=== PATIENT | male | born 1980 | race Caucasian/White ===

== ENCOUNTER 2024-04-12 06:54 | Outpatient (CLI) | payer OTHER, SELFPAY ==
--- NOTE | 2024-04-12 07:06 | MR_ITS ---
WS: [id number] MRI HEAD WITH CONTRAST TECHNIQUE: Sagittal T1, T2 axial, T2 axial FLAIR, axial susceptibility weighted imaging, axial diffus ion weighted images, and coronal T2 images were obtained. Pre and post-T1 axial and post T1 coronal i mages. ADC and FSPGR images. CLINICAL INFORMATION: RIVERS'S COMPARISON: None. FINDINGS: No evidence of restricted diffusion to suggest acute ischemia. Ventricular system and basal cisterns are patent. No suspicious intracranial signal abnormalities. Normal viera-white differentiat ion. Normal posterior fossa. Normal vascular flow voids at the skull base. No extra-axial fluid colle ctions. No evidence of mass or mass effect. Paranasal sinuses and mastoid air cells are well aerated. No hemosiderin on susceptibility-weighted i mages. Normal optic chiasm and pituitary infundibulum. Temporal lobes and hippocampal formations are normal in appearance. Incidental venous angioma RIGHT inferior frontal lobe. Normal dural venous sinuses. MR/MR head wo/w con [id number] IMPRESSION: 1. No evidence of restricted diffusion to suggest acute ischemia. 2. No suspicious intracranial signal abnormalities. 3. Incidental venous angioma RIGHT inferior frontal lobe. 4. No hemosiderin on the susceptibly weighted images. 5. No other suspicious findings.
== END 2024-04-12 06:55 | disposition home or self-care (01) ==
LOC: RAD 06:54
PROVIDERS: Visit Provider Family Medicine
DX: Z87.820 Personal history of traumatic brain injury (principal); R41.3 Other amnesia; D18.02 Hemangioma of intracranial structures
CPT/HCPCS: 70553; A9577

== ENCOUNTER 2025-06-03 23:44 | Emergency (ER) | payer OTHER, SELFPAY ==
--- NOTE | 2025-06-03 23:46 | ECG_ITS ---
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
--- OUTSIDE RECORDS SUMMARY | 2025-06-03 23:51 | XMS_ITS | Clinical Summary ---
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 Name Role Phone Unavailable Primary Care Provider Unavailabl e Social History Tobacco Use Types Packs/Day Years Used Date Smoking Tobacco: Never Assessed Sex and Gender Information Value Date Recorded Sex Assigned at Not on file Legal Sex Male 7:58 AM CDT Gender Identity Not on file Sexual Orientation Not on file Plan of Treatment Health Maintenance Due Date Last Done Comments DIABETES ANNUAL FOOT EXAM 1996 DIABETES MICROALBUMIN ANNUAL SCREEN 1996 LDL CHOLESTEROL ANNUAL 1996 HEPATITIS B VACCINES (1 of 3 - 19+ 3-dose series) 1997 03/06/2009, 04/18/2008 DIABETES ANNUAL RETINAL EXAM 03/16/2008 03/16/2007 DTAP/TDAP/TD VACCINES (1 - Tdap) 11/27/2010 11/26/2010 COLORECTAL SCREENING 11/04/2023 Colorectal Cancer Screening 11/04/2023 FIT-DNA Q 3 years 11/04/2023 FIT/FOBT Q 1 year 11/04/2023 Flex Sig/CT Colonography Q 5 years 11/04/2023 DIABETES HBA1C Q 6 MONTHS 07/28/2024 01/27/2024 INFLUENZA VACCINE (#1) 2025 6, 05/11/2012, 05/21/2011, Additional history exists HPV VACCINES Aged Out No longer eligi ble based on patient's age to complete this topic Insurance [place] [employer]
--- NOTE | 2025-06-04 00:04 | XRR_ITS ---
PROCEDURE INFORMATION: Exam: XR Chest Exam date and time: 06/04/2025 12:34 AM Age: 44 years old Clinical indication: Chest wall pain; Additional info: Cp TECHNIQUE: Imaging protocol: Radiologic exam of the chest. Views: 1 view. COMPARISON: No relevant prior studies available. FINDINGS: Lungs: Unremarkable. No consolidation. Pleural spaces: Unremarkable. No pleural effusion. No pneumothorax. Heart/Mediastinum: Unremarkable. No cardiomegaly. Bones/joints: Unremarkable. XR/XR chest 1V portable [id number] IMPRESSION: No acute findings.
[2025-06-04 00:10] VITALS: BP 137/90; PULSE 80; RESP 18; TEMP 36.6; O2SAT 97; BMI 25.7
[2025-06-04 00:46] LABS: Hematocrit 47.0 % (37-53); Hemoglobin 16.20 g/dL (11.27-16.99); Mean Corpuscular HGB Conc 34.5 g/dL (30-55); Mean Corpuscular Hemoglobin 30.4 pg (27-33); Mean Corpuscular Volume 88.2 fl (82-101); Nucleated Red Blood Cells % 0 %; Platelet Count 236 10^3/cmm (157-399); Red Blood Count 5.33 10^6/uL (3.85-5.65); White Blood Count 11.38 10^3/uL (3.29-11.43)
[2025-06-04 01:04] LABS: Troponin(5th) Baseline < 6 ng/L (0-15)
[2025-06-04 01:06] LABS: Alanine Aminotransferase 15 U/L (0-41); Albumin Level 4.6 g/dL (3.5-5.2); Alkaline Phosphatase 67 U/L (40-130); Anion Gap 18.2 (5-19); Aspartate Amino Transferase 17 U/L (0-40); Blood Urea Nitrogen 13 mg/dL (6-20); Calcium 9.4 mg/dL (8.5-10.5); Carbon Dioxide 24 mmol/L (22-29); Chloride 103 mmol/L (98-107); Creatinine Clr Calc Pharmacy 159.6642; Globulin 2.0 g/dL (1.3-4.6); Glucose 87 mg/dL (65-115); Osmolality Calculated 291 mOsm/kg (285-295); Potassium 4.2 mmol/L (3.5-5.1); Sodium 141 mmol/L (136-145); Total Protein 6.6 g/dL (6.6-8.7)
[2025-06-04] MEDS: lidocaine 2% viscous 15 ML, aluminum-mag hydrox-simethicon 30 ML, sucralfate oral liq 1 GM PO (01:43)
[2025-06-04 01:45] VITALS: BP 136/93; PULSE 81; RESP 16; O2SAT 99
[2025-06-04 02:00] VITALS: PULSE 78; RESP 16; O2SAT 98
--- NOTE | 2025-06-04 02:13 | W.ED.CHESTPA ---
HPI - Chest Pain General: Chief Complaint: Chest Pain Stated Complaint: Chest Pain Time Seen by Provider: 06/04/25 01:12 History of Present Illness: Patient is a 44-year-old male presenting with intermittent chest pain over the past couple of weeks. He reports that the [place] has been attempting to schedule him for an appointment but has experienced scheduling difficulties. The patient states he was advised to seek immediate care if he experienced chest pain. He describes the pain as a central, tight pressure in his chest that typically resolves with self-administration of cayenne pepper or niacin. Today's episode began after dinner and persisted for approximately 2 hours, prompting him to seek emergency care. The pain began to subside just before arrival at the facility. Patient recalls a more severe episode approximately 1.5 weeks ago, waking at 4 AM with deep chest pain accompanied by feeling unusually cold and clammy for 4-5 hours despite warm ambient temperature (85?F). He denies radiation of pain to other areas. He reports minimal respiratory symptoms with occasional reflexive coughing without productive sputum. He denies fever, nausea, or vomiting. At the time of examination, patient reports only the lightest little bit of chest discomfort remaining. Physical Exam Const: COMMON NORMALS: no acute distress GENERAL APPEARANCE: cooperative; not ill appearing and not frail appearing HENMT: COMMON NORMALS: normocephalic, atraumatic and Normal external nose present HEAD & SCALP: normocephalic and atraumatic FACE & SINUS: normal facial exam and face symmetric NOSE: Normal external nose present Eye: COMMON NORMALS: Equal, round and reactive pupils present and EOMs intact bilaterally PUPIL: Yes Equal, round and reactive pupils present Neck/C-Spine: GENERAL: Yes trachea midline Chest: CHEST: Yes Symmetrical chest wall rise Resp: COMMON NORMALS: normal respiratory effort, No retractions, No use of accessory muscles and clear to auscultation bilaterally AUSCULTATION: clear to auscultation bilaterally Cardio: COMMON NORMALS: regular rate and regular rhythm RATE: regular rate RHYTHM: regular rhythm GI: COMMON NORMALS: Normal to inspection, nondistended, normoactive bowel sounds present Extremity: COMMON NORMALS: no pedal edema Neuro: WAYNE COMA SCALE: document GCS findings Wayne coma scale eye opening: Spontaneous [place] coma scale verbal response: Orientated [place] coma scale motor response: Obey commands [place] coma scale total score: 15 SENSORY EXAM: Yes extremities (intact) Psych: COMMON NORMALS: speech normal SPEECH: Yes normal speech Skin: COMMON NORMALS: no rashes or lesions noted GENERAL SKIN EXAM: no rashes or lesions noted Course Vital Signs: Vital signs: Vital Signs Temperature 97.8 F 06/04/25 00:10 Pulse Rate 79 06/04/25 02:23 Respiratory Rate 16 06/04/25 02:23 Blood Pressure 132/90 06/04/25 02:23 Pulse Oximetry 98 06/04/25 02:23 Oxygen Delivery Me thod Room Air 06/04/25 01:45 MDM - Chest Pain Medical Decision Making EKG time 2349, read 2351 shows sinus rhythm with an RSR prime in V1 and V2. [place] is normal. Rate is 75. No ST wave changes. Troponin is nondetectable. CBC and BMP are normal. Chest x-ray is negative. The patient's vitals are stable. He was given a GI cocktail did not change his symptoms. He is stable for discharge. He will follow-up with his PCP. Return for any new or return of symptoms. Lab Data 06/03/25 00:33 06/03/25 00:33 Radiology Impressions Chest X-Ray 06/04/25 00:04 IMPRESSION: No acute findings. Laboratory Results WBC 11.38 10^3/uL (3.29-11.43) 06/03/25 00:33 RBC 5.33 10^6/uL (3.85-5.65) 06/03/25 00:33 Hgb 16.20 g/dL (11.27-16.99) 06/03/25 00:33 Hct 47.0 % (37-53) 06/03/25 00:33 MCV 88.2 fl (82-101) 06/03/25 00:33 MCH 30.4 pg (27-33) 06/03/25 00:33 MCHC 34.5 g/dL (30-55) 06/03/25 00:33 RDW 13.0 % (12.1-15.1) 06/03/25 00:33 Plt Count 236 10^3/cmm (157-399) 06/03/25 00:33 MPV 9.5 fL (7.4-10.4) 06/03/25 00:33 Neut % (Auto) 36.8 % 06/03/25 00:33 Lymph % (Auto) 51.8 % 06/03/25 00:33 [place] % (Auto) 5.4 % 06/03/25 00:33 Eos % (Auto) 5.0 % 06/03/25 00:33 Baso % (Auto) 0.9 % 06/03/25 00:33 Neut # (Auto) 4.19 10^3/uL (1.8-7.7) 06/03/25 00: Lymph # (Auto) 5.9 10^3/uL (0.8-4.8) H 06/03/25 00:33 [place] # (Auto) 0.6 10^3/uL (0.2-0.9) 06/03/25 00:33 Eos # (Auto) 0.6 10^3/uL (0.0-0.8) 06/03/25 00: Baso # (Auto) 0.1 10^3/uL (0.0-0.1) 06/03/25 00: Nucleated RBC % (auto) 0 % 06/03/25 00: Nucleated RBCs # 0.0 /100WBC 06/03/25 00:33 Sodium 141 mmol/L (136-145) 06/03/25 00: Potassium 4.2 mmol/L (3.5-5.1) 06/03/25 00: Chloride 103 mmol/L (98-107) 06/03/25 00: Carbon Dioxide 24 mmol/L (22-29) 06/03/25 00: Anion Gap 18.2 (5-19) 06/03/25 00: BUN 13 mg/dL (6-20) 06/03/25 00:33 Creatinine 0.7 mg/dL (0.7-1.2) 06/03/25 00:33 GFR Calculation 121.4 mL/min (90-130) 06/03/25 00: Glucose 87 mg/dL (65-115) 06/03/25 00:33 Calculated Osmolality 291 mOsm/kg (285-295) 06/03/25 00: Calcium 9.4 mg/dL (8.5-10.5) 06/03/25 00:33 Total Bilirubin 0.5 mg/dL (0.15-1.2) 06/03/25 00:33 AST 17 U/L (0-40) 06/03/25 00:33 ALT 15 U/L (0-41) 06/03/25 00:33 Alkaline Phosphatase 67 U/L (40-130) 06/03/25 00:33 Troponin T Baseline < 6 ng/L (0-15) 06/03/25 00:33 Total Protein 6.6 g/dL (6.6-8.7) 06/03/25 00:33 Albumin 4.6 g/dL (3.5-5.2) 06/03/25 00:33 Globulin 2.0 g/dL (1.3-4.6) 06/03/25 00:33 All radiology interpretation(s) finalized by discharge Discharge Plan Discharge Patient Disposition: Home Clinical Impression: Chest pain Condition: Stable Discharge Orders: Discharge ED (Routine); Ordered 06/04/25 Ordered By: Trent Martel Patient Instructions: Chest Pain (ED), Opioid Safety, Pain Management, Patient Portal & Arias Instructions Activity Restrictions/Additional Instructions: Return for repeated episodes of chest discomfort, shortness of breath, vomiting, fever, any other concerning symptoms. Call your doctor on Thursday for a follow-up appointment. Further outpatient testing may be needed. 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
[2025-06-04 02:23] VITALS: BP 132/90; PULSE 79; RESP 16; O2SAT 98
== END 2025-06-04 02:27 | disposition home or self-care (01) ==
PROVIDERS: Emergency Provider Emergency Medicine
DX: R07.9 Chest pain, unspecified (principal)
CPT/HCPCS: 36415; 71045; 80053; 84484; 85025; 93005; 99285; J9999